=== PATIENT | female | born 1990 | race Two or more races ===

== ENCOUNTER 2017-01-31 16:24 | Emergency (ER) | payer MEDICAID ==
[~2017-01-31] VITALS: Ht 172.7 cm; Wt 72.6 kg
[2017-01-31] MEDS ORDERED: TDAP [DIPH/PERTUSSIS/TET] 0.5 ML VIAL IM ONE ×2 (16:51→17:00)
[2017-01-31 17:01] VITALS: BP 145/65
== END 2017-01-31 17:26 | disposition home or self-care (01) ==
LOC: ER 16:26
DX: S00.81XA Abrasion of other part of head, initial encounter (principal); W20.8XXA Other cause of strike by thrown, projected or falling object, initial encounter; Y93.89 Activity, other specified; Y92.091 Bathroom in other non-institutional residence as the place of occurrence of the external cause; Y99.8 Other external cause status
CPT/HCPCS: 90471; 90715; 99283; A4606; Z7610